=== PATIENT | female | born 1965 | race Caucasian/White ===

== ENCOUNTER 2017-06-24 18:30 | Emergency (ER) | payer OTHER ==
[2017-06-24 20:14] VITALS: BP 120/70
== END 2017-06-24 20:14 | disposition home or self-care (01) ==
LOC: ED 18:30
DX: S16.1XXA Strain of muscle, fascia and tendon at neck level, initial encounter (principal); S46.911A Strain of unspecified muscle, fascia and tendon at shoulder and upper arm level, right arm, initial encounter; S30.1XXA Contusion of abdominal wall, initial encounter; I10 Essential (primary) hypertension; E78.00 Pure hypercholesterolemia, unspecified; V49.9XXA Car occupant (driver) (passenger) injured in unspecified traffic accident, initial encounter; Y93.89 Activity, other specified; Y99.8 Other external cause status; Y92.89 Other specified places as the place of occurrence of the external cause

== ENCOUNTER 2017-09-24 02:07 | Inpatient (IN) | payer OTHER ==
[~2017-09-24] VITALS: Ht 162.6 cm; Wt 71.7 kg
[2017-09-24 02:38] VITALS: Ht 162.6 cm; Wt 71.7 kg
[2017-09-24 03:11] LABS: BASOPHIL % 0.7 % (0-2); PLATELET COUNT 276 x10^3mcL (130-400)
[2017-09-24 03:19] LABS: CALCIUM 9.1 mg/dL (8.5-10.1); CARBON DIOXIDE 27.9 mmol/L (21-32); CHLORIDE SERUM 100 mmol/L (98-107); CREATININE SERUM 0.9 mg/dL (0.6-1.0); GFR1 > 60 mL/min; GLUCOSE SERUM 114 mg/dL (74-106); POTASSIUM SERUM 3.9 mmol/L (3.5-5.1); SODIUM SERUM 137 mmol/L (136-145)
[2017-09-24 03:24] LABS: ALBUMIN 3.9 g/dL (3.4-5.0); ALKALINE PHOSPHATASE 87 U/L (46-116); ALT/SGPT 26 U/L (14-59); AST/SGOT 16 U/L (15-37); BILIRUBIN TOTAL 0.4 mg/dL (0.20-1.00); LIPASE 142 IU/L (73-393); TOTAL PROTEIN, SERUM 7.4 g/dL (6.4-8.2)
[2017-09-24] MEDS ORDERED: DIOVAN40 MG PO (05:05)
[2017-09-24] MEDS ORDERED: SIMVASTATIN10 M1 PO (05:05)
[2017-09-24 06:05] LABS: MAGNESIUM 1.9 mg/dL (1.8-2.4); PHOSPHOROUS 3.7 mg/dL (2.5-4.9)
[2017-09-24 06:15] LABS: FREE T4 0.95 ng/dL (0.76-1.46); FREE THYROXINE INDEX 2.1 ug/dL (1.4-4.5); T4(THYROXINE) 6.3 ug/dL (4.7-13.3)
[2017-09-24 06:40] VITALS: BP 93/49
[2017-09-24 07:13] LABS: microscopic required? YES; urine erythrocyte TRACE (NEGATIVE)
[2017-09-24 07:22] LABS: AMPHETAMINE QUAL UR NONE DETECTED (NEG <=1000)
[2017-09-24 08:03] VITALS: BP 89/43
[2017-09-24 08:30] VITALS: BP 89/50
[2017-09-24 10:38] VITALS: BP 110/61
[2017-09-24 17:23] VITALS: BP 101/57
[2017-09-24 21:07] VITALS: BP 125/77
[2017-09-25 06:12] VITALS: BP 106/55
[2017-09-25 06:54] LABS: BASOPHIL % 0.1 % (0-2); PLATELET COUNT 235 x10^3mcL (130-400); RED CELL DISTRIBUTION WIDTH 14.1 % (11.5-14.5)
[2017-09-25 07:23] LABS: CALCIUM 7.9 mg/dL (8.5-10.1); CARBON DIOXIDE 24.3 mmol/L (21-32); CHLORIDE SERUM 108 mmol/L (98-107); CREATININE SERUM 0.7 mg/dL (0.6-1.0); GFR1 > 60 mL/min; GLUCOSE SERUM 101 mg/dL (74-106); POTASSIUM SERUM 3.9 mmol/L (3.5-5.1); SODIUM SERUM 142 mmol/L (136-145)
[2017-09-25 09:17] VITALS: BP 115/77
[2017-09-25 14:23] VITALS: BP 124/77
[2017-09-25 16:53] VITALS: BP 125/71
[2017-09-25 20:10] VITALS: BP 114/73
[2017-09-26 05:03] VITALS: BP 123/83
[2017-09-26 06:22] LABS: BASOPHIL % 0.4 % (0-2); PLATELET COUNT 263 x10^3mcL (130-400); RED CELL DISTRIBUTION WIDTH 13.6 % (11.5-14.5)
[2017-09-26 07:04] LABS: CALCIUM 7.8 mg/dL (8.5-10.1); CARBON DIOXIDE 23.3 mmol/L (21-32); CHLORIDE SERUM 107 mmol/L (98-107); CREATININE SERUM 0.7 mg/dL (0.6-1.0); GFR1 > 60 mL/min; GLUCOSE SERUM 93 mg/dL (74-106); POTASSIUM SERUM 3.7 mmol/L (3.5-5.1); SODIUM SERUM 143 mmol/L (136-145)
[2017-09-26 08:30] VITALS: BP 115/79
[2017-09-26] MEDS ORDERED: CIPRO250 MG PO (10:47)
[2017-09-26] MEDS ORDERED: FLA500 PO (10:47)
[2017-09-26] MEDS ORDERED: LAC PO (10:48)
[2017-09-26 11:35] VITALS: BP 115/79
== END 2017-09-26 12:46 | disposition home or self-care (01) | DRG 392 ==
LOC: ED 02:07 → DU 04:44 → MU 09-25 15:06
PROVIDERS: Emergency Medicine; Family Medicine Sports Medicine
DX: K57.32 Diverticulitis of large intestine without perforation or abscess without bleeding (principal); R18.8 Other ascites; I10 Essential (primary) hypertension; E78.5 Hyperlipidemia, unspecified; E66.3 Overweight; Z68.25 Body mass index [BMI] 25.0-25.9, adult; D25.9 Leiomyoma of uterus, unspecified; D18.01 Hemangioma of skin and subcutaneous tissue; E87.8 Other disorders of electrolyte and fluid balance, not elsewhere classified
CPT/HCPCS: 83880; 84439; J1885; J1956; J2270; J2405; J2550; J3010; J3490; J7030; J7040; Q0092; Q0162; Q9967

== ENCOUNTER 2020-06-23 18:15 | Emergency (ER) | payer OTHER ==
[~2020-06-23] VITALS: Ht 162.6 cm; Wt 68.9 kg
[~2020-06-23 18:15] MED LIST: CIPRO250 MG PO; DIOVAN40 MG PO; FLA500 PO; LAC PO; SIMVASTATIN10 M1 PO
[2020-06-23 18:52] VITALS: Ht 162.6 cm; Wt 68.9 kg
[2020-06-23 20:56] VITALS: BP 158/92
== END 2020-06-23 20:56 | disposition home or self-care (01) ==
LOC: ED 18:15
DX: S01.511A Laceration without foreign body of lip, initial encounter (principal); W54.0XXA Bitten by dog, initial encounter; Y93.89 Activity, other specified; Y92.89 Other specified places as the place of occurrence of the external cause; Y99.8 Other external cause status
CPT/HCPCS: 90715; J2001

== ENCOUNTER 2020-06-25 08:06 | Emergency (ER) | payer OTHER ==
[~2020-06-25] VITALS: Ht 162.6 cm; Wt 69.9 kg
[2020-06-25 08:29] VITALS: BP 143/73; Ht 162.6 cm; Wt 69.9 kg
== END 2020-06-25 09:45 | disposition home or self-care (01) ==
LOC: ED 08:06
DX: S01.551D Open bite of lip, subsequent encounter (principal); I10 Essential (primary) hypertension; E78.00 Pure hypercholesterolemia, unspecified; W54.0XXD Bitten by dog, subsequent encounter

== ENCOUNTER 2020-06-29 09:29 | Emergency (ER) | payer OTHER ==
[~2020-06-29] VITALS: Ht 162.6 cm; Wt 72.1 kg
[2020-06-29 09:45] VITALS: Ht 162.6 cm; Wt 72.1 kg
[2020-06-29 10:14] VITALS: BP 135/93
== END 2020-06-29 10:14 | disposition home or self-care (01) ==
LOC: ED 09:29
DX: S01.511D Laceration without foreign body of lip, subsequent encounter (principal); I10 Essential (primary) hypertension; E78.00 Pure hypercholesterolemia, unspecified; X58.XXXD Exposure to other specified factors, subsequent encounter